=== PATIENT | male | born 1960 | race Caucasian/White ===

== ENCOUNTER → 2021-05-21 08:37 | Outpatient (CLI) | payer OTHER, SELFPAY ==
[2021-05-21 21:08] LABS: COVID19 - ORCAS (NP or Nasal) Negative (Negative)
== END ==
PROVIDERS: PCP Physician Assistant; Visit Provider Family Medicine
DX: Z20.822 Contact with and (suspected) exposure to COVID-19 (principal)
CPT/HCPCS: U0003

== ENCOUNTER 2021-05-24 11:48 | Day surgery (SDC) | payer OTHER, SELFPAY ==
[2021-05-24] VITALS (9 sets, daily range): BP systolic 117–132; BP diastolic 83–93; PULSE 71–80; RESP 10–18; TEMP 36.7–37.1; O2SAT 95–100; BMI 25.4
[2021-05-24] MEDS: LACTATED RINGERS 1,000 ML 200 ML IV (13:06)
--- NOTE | 2021-05-24 13:08 | PM.HP.1 ---
History of Present Illness History of Present Illness Date Patient Seen: 05/24/21 Time Patient Seen: 13:09 Chief complaint: SCREENING COLONOSCOPY Narrative: The patient presents for colorectal sreening. They have never had any previous examination for such. No personal or family history of colon cancer. On further history denies any recent gastrointestinal symptoms. No nausea, vomiting, abdominal pain, loss of appetite, unexplained weight loss, change in bowel habits, diarrhea, constipation, melena, hematochezia, or bright red blood per rectum. Patient History Medical History Encounter for screening for malignant neoplasm of colon Familial hemochromatosis (~2011) Hypertension (~2014) Obstructive sleep apnea (~2018) Raynauds syndrome Snoring (Unknown) Streptococcal sore throat Family & Social History Social History: household members spouse Tobacco & Substance use: Smoking Status Never smoker alcohol intake current alcohol intake frequency a few times a month Meds Home Medications and Allergies Home Medications Medication Instructions Recorded Confirmed Type methocarbamol 500 mg tablet See Rx Instructions PO QID PRN 02/21/21 05/24/21 Rx #100 tab Allergies Allergy/AdvReac Type Severity Reaction Status Date / Time No Known Drug Allergies Allergy Verified 05/24/21 13:07 Review of Systems Review of Systems ROS: Yes All systems reviewed with the patient and are negative except as otherwise documented Exam Vital Signs (past 8 hours): - 05/24/21 12:28 05/24/21 13:07 Temperature 98.1 F 98.1 F Pulse Rate 74 75 Respiratory Rate 16 18 Blood Pressure 129/87 Pulse Oximetry 100 100 Oxygen Delivery Method Room Air Narrative Exam Narrative: Constitutional-he is oriented to person, place and time. No apparent distress Cardiovascular- regular rate, no peripheral edema Pulmonary-unlabored respiratory effort, no audible wheezing Abdominal-soft, non-tender, non-distended Musculoskeletal-no cyanosis or clubbing Neurological-nonfocal, normal strength throughout, normal gait. Skin-warm and dry Assessment & Plan Assessment & Plan narrative: The patient requires colorectal screening and colonoscopy is recommended. Technical details were discussed. Risks, benefits, alternatives explained. Risks including but not limited to myocardial infarction, aspiration, bleeding, pain, missed lesion, incomplete examination, need for further radiographic studies, colonic perforation, and need for major abdominal surgery were discussed. All questions were answered to their satisfaction, and they are in agreement with this plan. Time Spent With Patient Critical Care time: I spent a total of [] minutes of critical care time on this patient's care today; this time is exclusive of procedural time.
[2021-05-24] MEDS: fentaNYL 250 MCG/5 ML INJ IV (13:15)
[2021-05-24] MEDS: MIDAZOLAM 5 MG/5 ML VIAL IV (13:15)
--- NOTE | 2021-05-24 13:22 | PM.OP.ENDO ---
Operative Date/Time/Diagnoses Date of procedure: 05/24/21 Time of procedure: 13:22 Pre-op diagnosis: screening colonoscopy Post-op diagnosis: same Procedure & Clinicians Study performed: aborted colonoscopy Same procedure as scheduled: No Indications: screening Surgeon: Suresh Lacy Procedure Notes Procedure in detail: Medications: Conscious sedation using 100mg IV midazolam and 5mcg IV of fentanyl The history and physical was performed/updated and the patient is ASA class is 2. The procedure was discussed in detail with the patient. Potential risks complications including infection, bleeding, missed diagnosis, perforation, need for surgery, and were explained. Their questions were answered and informed consent was obtained. Patient was brought to the procedure room and placed standard monitoring equipment. The patient's vital signs were monitored continuously throughout the entire procedure. Prior to starting time-out was performed. The patient was placed in the left lateral recumbent position. Procedural sedation was administered. Examination began with a thorough inspection of the perianal area there was no evidence of fissures, fistulae, external hemorrhoids or cutaneous malignancy. The colonoscopy scope was then placed into the anal canal and was advanced forward. Quality of the prep was quite poor despite irrigation it did not improve significantly enough to perform this study safely or accurately. The procedure was then aborted. The total sedation time was 5 minutes. Complications: none Impression: Aborted colonoscopy secondary to inadequate prep Post-procedure Plan for aftercare: Reschedule Disposition: same day surgery
== END 2021-05-24 14:10 | disposition home or self-care (01) ==
PROVIDERS: PCP Physician Assistant; Referring Provider Surgery; Visit Provider Surgery
PROC: 0DJD8ZZ Inspection of Lower Intestinal Tract, Via Natural or Artificial Opening Endoscopic (ICD-10-PCS; CPT 45378; principal; 2021-05-24 13:00)
DX: Z12.11 Encounter for screening for malignant neoplasm of colon (principal); I10 Essential (primary) hypertension; G47.33 Obstructive sleep apnea (adult) (pediatric); I73.00 Raynaud's syndrome without gangrene
CPT/HCPCS: 45378; J2250; J3010

== ENCOUNTER → 2021-07-10 12:16 | Outpatient (CLI) | payer OTHER, SELFPAY ==
[2021-07-10 19:13] LABS: Add Manual Diff / Slide Review NO; Basophils Absolute Auto 0 /uL (0-100); Basophils Percent Auto 0.3 % (0-2); Eosinophils Absolute Auto 100 /uL (0-450); Eosinophils Percent Auto 1.2 % (2-4); Hemoglobin 15.8 g/dL (13.5-17.5); Lymphocytes Absolute Auto 1500 /uL (1100-4500); Lymphocytes Percent Auto 28.2 % (25-40); Mean Corpuscular HGB Conc 35.1 % (30-36); Mean Corpuscular Hemoglobin 33.6 PG (26-34); Monocytes Absolute Auto 700 /uL (0-900); Monocytes Percent Auto 12.3 % (3-14); Neutrophils Absolute Auto 3100 /uL (1500-7000); Platelet Count 169 X10^3/uL (150-400); Red Blood Cell Count 4.69 X10^6/uL (4.5-5.9); White Blood Cell Count 5.3 X10^3/uL (4.5-11.0)
[2021-07-10 19:55] LABS: Ferritin 104 ng/mL (18-464)
== END ==
PROVIDERS: PCP Physician Assistant; Referring Provider Internal Medicine; Visit Provider Internal Medicine
DX: E83.119 Hemochromatosis, unspecified (principal)
CPT/HCPCS: 82728; 85025

== ENCOUNTER → 2021-10-19 13:34 | Outpatient (CLI) | payer OTHER, SELFPAY ==
[2021-10-19 18:54] LABS: Add Manual Diff / Slide Review NO; Basophils Absolute Auto 0 /uL (0-100); Basophils Percent Auto 0.5 % (0-2); Eosinophils Absolute Auto 0 /uL (0-450); Hematocrit 42.4 % (41-53); Hemoglobin 15.1 g/dL (13.5-17.5); Lymphocytes Absolute Auto 1400 /uL (1100-4500); Lymphocytes Percent Auto 29.6 % (25-40); Mean Corpuscular HGB Conc 35.6 % (30-36); Mean Corpuscular Volume 95.5 fL (80-100); Monocytes Absolute Auto 500 /uL (0-900); Monocytes Percent Auto 10.5 % (3-14); Neutrophils Absolute Auto 2700 /uL (1500-7000); Neutrophils Percent Auto 58.4 % (50-75); Platelet Count 155 X10^3/uL (150-400); Red Blood Cell Count 4.44 X10^6/uL (4.5-5.9); Red Cell Distribution Width 12.9 % (11.6-14.8); White Blood Cell Count 4.6 X10^3/uL (4.5-11.0)
[2021-10-19 19:43] LABS: Ferritin 122 ng/mL (18-464)
== END ==
PROVIDERS: PCP Physician Assistant; Visit Provider Internal Medicine
DX: E83.119 Hemochromatosis, unspecified (principal)
CPT/HCPCS: 82728; 85025

== ENCOUNTER → 2022-03-07 10:21 | Outpatient (CLI) | payer OTHER, SELFPAY | PROVIDERS: PCP Physician Assistant; Visit Provider Physician Assistant | DX: R19.7 Diarrhea, unspecified (principal) | CPT/HCPCS: 87045; 87177; 87329; 87899 ==

== ENCOUNTER → 2022-04-30 09:22 | Outpatient (CLI) | payer OTHER, SELFPAY ==
[2022-04-30 19:45] LABS: Alanine Aminotransferase 39 IU/L (<50); Albumin 4.2 g/dL (3.5-5.0); Albumin Globulin Ratio 1.8 (1.0-2.8); Alkaline Phosphatase 58 U/L (38-126); Aspartate Aminotransferase 31 IU/L (17-59); BUN Creatinine Ratio 15.8 (6-22); Bilirubin Total 0.7 mg/dL (0.2-1.3); Blood Urea Nitrogen 12 mg/dL (9-20); Calcium 8.9 mg/dL (8.4-10.2); Carbon Dioxide 26 mmol/L (22-32); Chloride 102 mmol/L (98-107); Estimated Glomerular Filt Rate > 60 mL/min (>60); Globulin 2.4 g/dL (1.7-4.1); Glucose 90 mg/dL (70-100); HEMOLYSIS 32 (0-50); Potassium 4.2 mmol/L (3.4-5.1); Sodium 137 mmol/L (137-145); Total Protein 6.6 g/dL (6.3-8.2)
[2022-04-30 20:19] LABS: Ferritin 200 ng/mL (18-464)
[2022-04-30 20:29] LABS: Basophils Absolute Auto 100 /uL (0-100); Basophils Percent Auto 1.1 % (0-2); Eosinophils Absolute Auto 200 /uL (0-450); Eosinophils Percent Auto 3.4 % (2-4); Lymphocytes Absolute Auto 1700 /uL (1100-4500); Lymphocytes Percent Auto 32.9 % (25-40); Mean Corpuscular HGB Conc 35.6 % (30-36); Mean Corpuscular Hemoglobin 33.4 PG (26-34); Mean Corpuscular Volume 93.8 fL (80-100); Monocytes Absolute Auto 600 /uL (0-900); Neutrophils Absolute Auto 2600 /uL (1500-7000); Neutrophils Percent Auto 50.6 % (50-75); Platelet Count 175 X10^3/uL (150-400); Red Blood Cell Count 4.48 X10^6/uL (4.5-5.9); Red Cell Distribution Width 12.7 % (11.6-14.8); White Blood Cell Count 5.1 X10^3/uL (4.5-11.0)
[2022-04-30 21:26] LABS: Add Manual Diff / Slide Review SLIDE REVIEW
[2022-04-30 21:27] LABS: RBC Morphology Normal Morphology
== END ==
PROVIDERS: PCP Physician Assistant; Visit Provider Physician Assistant
DX: E83.110 Hereditary hemochromatosis (principal)
CPT/HCPCS: 80053; 82728; 85025

== ENCOUNTER → 2022-11-06 11:37 | Outpatient (CLI) | payer OTHER, SELFPAY ==
--- NOTE | 2022-11-06 11:45 | DI.MRI.S_ITS ---
PROCEDURE: MR KNEE LT WO CON INDICATIONS: left knee pain and swelling TECHNIQUE: Noncontrast sagittal PD fast spin echo and T2 fast spin echo with fat saturation, sagittal 3-D FLASH with fat saturation; coronal T1 spin echo and PD fast spin echo with fat saturation, and axial PD fast spin echo with fat saturation through the knee. COMPARISON: [facility] ([facility] CR, XR KNEE LT 3V, 09/10/2022, 9:00. FINDINGS: Image quality: Excellent. Menisci: Subtle oblique tear involving posterior horn of medial meniscus is seen extending to superior articulating surface. The lateral meniscus is intact. The meniscal root ligaments appear intact. Cruciate ligaments: T2 hyperintense signal involving proximal portion of anterior cruciate ligament near its femoral insertion is seen. The posterior cruciate ligament is intact. Medial structures: The medial collateral ligament appears thickened with adjacent soft tissue edema. The posterior oblique ligament, semimembranosus tendon insertions, oblique popliteal ligament, and meniscocapsular junction appear intact. Visualized portions of the pes anserinus tendons appear normal. No abnormal bursal fluid. Lateral structures: The lateral collateral ligament, long and short heads of the biceps femoris tendon appear intact. The popliteus tendon appears normal; the popliteofibular ligament appears intact. Iliotibial band appears normal. Anterior structures: The quadriceps and patellar tendons appear intact. Patellar alignment is normal. No femoral trochlear dysplasia or ventral trochlear prominence. No edema in the infrapatellar fat pad. Bones and cartilage: [id number] tricompartmental osteoarthritis and chondromalacia is seen more notably in medial femoral tibial compartment and patellofemoral compartment. Significant marrow edema is seen involving weight-bearing portion of medial femoral condyle and inferior aspect of patella without discrete fracture line. Joint space: There is small to moderate knee joint fluid. No Choudhary's cyst. Normal appearing synovial plicae are incidentally noted. IMPRESSION: 1. Subtle oblique tear involving posterior horn of medial meniscus extending to superior articulating surface. No focal lateral meniscal tear. 2. Low-grade intrasubstance partial-thickness tear involving proximal anterior cruciate ligament. No ACL rupture. The PCL is intact. 3. Low-grade MCL sprain. 4. [id number] tricompartmental osteoarthritis and chondromalacia most notably in medial femoral tibial compartment and patellofemoral compartment as above. No fracture or dislocation. Small to moderate joint effusion, no gross loose bodies. Dictated by: Jensen Llanos M.D. on 11/06/2022 at 15:23 Approved by: Jensen Llanos M.D. on 11/06/2022 at 15:27
== END ==
PROVIDERS: PCP Physician Assistant; Referring Provider Physician Assistant; Visit Provider Physician Assistant
DX: S83.242A Other tear of medial meniscus, current injury, left knee, initial encounter (principal); S83.512A Sprain of anterior cruciate ligament of left knee, initial encounter; S83.412A Sprain of medial collateral ligament of left knee, initial encounter; M17.12 Unilateral primary osteoarthritis, left knee; M94.262 Chondromalacia, left knee; M25.562 Pain in left knee; M25.462 Effusion, left knee
CPT/HCPCS: 73721

== ENCOUNTER → 2022-12-18 09:31 | Outpatient (CLI) | payer OTHER, SELFPAY ==
[2022-12-18 19:36] LABS: Add Manual Diff / Slide Review NO; Basophils Absolute Auto 0 /uL (0-100); Basophils Percent Auto 0.2 % (0-2); Eosinophils Absolute Auto 100 /uL (0-450); Eosinophils Percent Auto 1.2 % (2-4); Hematocrit 43.3 % (41-53); Hemoglobin 15.4 g/dL (13.5-17.5); Lymphocytes Absolute Auto 1600 /uL (1100-4500); Lymphocytes Percent Auto 30.8 % (25-40); Mean Corpuscular HGB Conc 35.5 % (30-36); Mean Corpuscular Hemoglobin 33.1 PG (26-34); Mean Corpuscular Volume 93.1 fL (80-100); Monocytes Absolute Auto 500 /uL (0-900); Neutrophils Absolute Auto 3000 /uL (1500-7000); Neutrophils Percent Auto 57.8 % (50-75); Platelet Count 179 X10^3/uL (150-400); Red Blood Cell Count 4.65 X10^6/uL (4.5-5.9); Red Cell Distribution Width 13.1 % (11.6-14.8); White Blood Cell Count 5.2 X10^3/uL (4.5-11.0)
[2022-12-18 19:47] LABS: Alanine Aminotransferase 66 IU/L (<50); Albumin 4.2 g/dL (3.5-5.0); Albumin Globulin Ratio 1.6 (1.0-2.8); Alkaline Phosphatase 69 U/L (38-126); Aspartate Aminotransferase 37 IU/L (17-59); BUN Creatinine Ratio 18.4 (6-22); Bilirubin Total 0.9 mg/dL (0.2-1.3); Blood Urea Nitrogen 14 mg/dL (9-20); Calcium 9.1 mg/dL (8.4-10.2); Carbon Dioxide 30 mmol/L (22-32); Chloride 100 mmol/L (98-107); Cholesterol 197 mg/dL (140-199); Estimated Glomerular Filt Rate > 60 mL/min (>60); Globulin 2.7 g/dL (1.7-4.1); Glucose 97 mg/dL (80-110); HDL Cholesterol 54 mg/dL (40-60); HEMOLYSIS < 15 (0-50); LDL Cholesterol Calculated 120 mg/dL (<100); Potassium 4.1 mmol/L (3.4-5.1); Sodium 136 mmol/L (137-145); Total Protein 6.9 g/dL (6.3-8.2); Triglycerides 114 mg/dL (35-150)
[2022-12-18 20:10] LABS: Prostate Specific Antigen 0.692 ng/mL (0.10-4.00)
[2022-12-18 20:15] LABS: Ferritin 301 ng/mL (18-464)
[2022-12-19 19:11] LABS: Hep C Virus Ab w/Reflex Quant NEGATIVE s/c (NEGATIVE)
== END ==
PROVIDERS: PCP Physician Assistant; Visit Provider Physician Assistant
DX: I10 Essential (primary) hypertension (principal); Z13.6 Encounter for screening for cardiovascular disorders; Z11.59 Encounter for screening for other viral diseases; Z12.5 Encounter for screening for malignant neoplasm of prostate; E83.110 Hereditary hemochromatosis
CPT/HCPCS: 80053; 80061; 82728; 84153; 85025; 86803

== ENCOUNTER → 2023-03-04 11:45 | Outpatient (CLI) | payer OTHER, SELFPAY ==
[2023-03-04 20:08] LABS: Add Manual Diff / Slide Review NO; Basophils Absolute Auto 0 /uL (0-100); Basophils Percent Auto 0.3 % (0-2); Eosinophils Absolute Auto 100 /uL (0-450); Eosinophils Percent Auto 1.1 % (2-4); Hematocrit 41.2 % (41-53); Hemoglobin 14.9 g/dL (13.5-17.5); Lymphocytes Absolute Auto 1600 /uL (1100-4500); Lymphocytes Percent Auto 31.3 % (25-40); Mean Corpuscular HGB Conc 36.1 % (30-36); Mean Corpuscular Hemoglobin 33.9 PG (26-34); Mean Corpuscular Volume 93.9 fL (80-100); Monocytes Absolute Auto 600 /uL (0-900); Monocytes Percent Auto 11.4 % (3-14); Neutrophils Absolute Auto 2900 /uL (1500-7000); Neutrophils Percent Auto 55.9 % (50-75); Platelet Count 164 X10^3/uL (150-400); Red Blood Cell Count 4.39 X10^6/uL (4.5-5.9); Red Cell Distribution Width 13.1 % (11.6-14.8); White Blood Cell Count 5.2 X10^3/uL (4.5-11.0)
[2023-03-04 20:11] LABS: Alanine Aminotransferase 49 IU/L (<50); Albumin 4.2 g/dL (3.5-5.0); Albumin Globulin Ratio 1.5 (1.0-2.8); Alkaline Phosphatase 70 U/L (38-126); Aspartate Aminotransferase 31 IU/L (17-59); BUN Creatinine Ratio 15.6 (6-22); Bilirubin Total 0.8 mg/dL (0.2-1.3); Blood Urea Nitrogen 12 mg/dL (9-20); Carbon Dioxide 27 mmol/L (22-32); Chloride 100 mmol/L (98-107); Cholesterol 193 mg/dL (140-199); Estimated Glomerular Filt Rate > 60 mL/min (>60); Globulin 2.8 g/dL (1.7-4.1); Glucose 89 mg/dL (80-110); HDL Cholesterol 60 mg/dL (40-60); HEMOLYSIS < 15 (0-50); LDL Cholesterol Calculated 115 mg/dL (<100); Potassium 4.1 mmol/L (3.4-5.1); Sodium 136 mmol/L (137-145); Triglycerides 91 mg/dL (35-150)
[2023-03-06 00:07] LABS: x Labcorp Estim. Avg Glu (eAG) 97 mg/dL (.)
== END ==
PROVIDERS: PCP Physician Assistant; Visit Provider Orthopaedic Surgery Foot and Ankle Surgery
DX: R73.9 Hyperglycemia, unspecified (principal); Z01.812 Encounter for preprocedural laboratory examination; E78.00 Pure hypercholesterolemia, unspecified; R74.8 Abnormal levels of other serum enzymes
CPT/HCPCS: 80053; 80061; 83036; 85025

== ENCOUNTER → 2023-08-25 14:32 | Outpatient (CLI) | payer OTHER, SELFPAY ==
[2023-08-25 19:47] LABS: Add Manual Diff / Slide Review NO; Basophils Absolute Auto 0 /uL (0-100); Basophils Percent Auto 0.6 % (0-2); Eosinophils Absolute Auto 0 /uL (0-450); Eosinophils Percent Auto 0.7 % (2-4); Hematocrit 42.6 % (41-53); Hemoglobin 15.3 g/dL (13.5-17.5); Lymphocytes Absolute Auto 1300 /uL (1100-4500); Lymphocytes Percent Auto 26.1 % (25-40); Mean Corpuscular Hemoglobin 33.7 PG (26-34); Mean Corpuscular Volume 93.6 fL (80-100); Monocytes Absolute Auto 500 /uL (0-900); Monocytes Percent Auto 10.8 % (3-14); Neutrophils Absolute Auto 3100 /uL (1500-7000); Neutrophils Percent Auto 61.8 % (50-75); Platelet Count 175 X10^3/uL (150-400); Red Blood Cell Count 4.55 X10^6/uL (4.5-5.9); Red Cell Distribution Width 13.5 % (11.6-14.8)
[2023-08-25 19:56] LABS: HEMOLYSIS < 15 (0-50); Potassium 3.9 mmol/L (3.4-5.1)
[2023-08-25 19:57] LABS: Alanine Aminotransferase 46 IU/L (<50); Albumin 4.2 g/dL (3.5-5.0); Albumin Globulin Ratio 1.7 (1.0-2.8); Alkaline Phosphatase 68 U/L (38-126); Aspartate Aminotransferase 31 IU/L (17-59); BUN Creatinine Ratio 15.1 (6-22); Bilirubin Total 0.8 mg/dL (0.2-1.3); Blood Urea Nitrogen 14 mg/dL (9-20); Calcium 9.6 mg/dL (8.4-10.2); Carbon Dioxide 27 mmol/L (22-32); Chloride 101 mmol/L (98-107); Estimated Glomerular Filt Rate > 60 mL/min (>60); Globulin 2.5 g/dL (1.7-4.1); Glucose 97 mg/dL (80-110); Sodium 137 mmol/L (137-145); Total Protein 6.7 g/dL (6.3-8.2)
[2023-08-25 20:27] LABS: Ferritin 464 ng/mL (18-464)
[2023-08-25 20:34] LABS: HEMOLYSIS < 15 (0-50); Iron 165 ug/dL (49-181)
[2023-08-25 20:45] LABS: Percent Iron Saturation 66 % (20-50); Total Iron Binding Capacity 251 ug/dL (261-462); Transferrin 207 mg/dL (206-381)
== END ==
PROVIDERS: PCP Physician Assistant; Visit Provider Internal Medicine
DX: E83.110 Hereditary hemochromatosis (principal)
CPT/HCPCS: 80053; 82728; 83540; 83550; 85025

== ENCOUNTER → 2023-10-07 14:31 | Outpatient (CLI) | payer OTHER, SELFPAY ==
[2023-10-07 19:13] LABS: Hematocrit 41.8 % (41-53); Hemoglobin 14.8 g/dL (13.5-17.5); Mean Corpuscular HGB Conc 35.4 % (30-36); Mean Corpuscular Hemoglobin 33.8 PG (26-34); Mean Corpuscular Volume 95.6 fL (80-100); Platelet Count 195 X10^3/uL (150-400); Red Blood Cell Count 4.37 X10^6/uL (4.5-5.9); Red Cell Distribution Width 14.1 % (11.6-14.8); White Blood Cell Count 5.8 X10^3/uL (4.5-11.0)
[2023-10-07 19:57] LABS: Ferritin 389 ng/mL (18-464)
== END ==
PROVIDERS: PCP Physician Assistant; Visit Provider Internal Medicine
DX: E83.119 Hemochromatosis, unspecified (principal)
CPT/HCPCS: 82728; 85027

== ENCOUNTER → 2023-11-06 14:19 | Outpatient (CLI) | payer OTHER, SELFPAY ==
[2023-11-06 19:53] LABS: Ferritin 311 ng/mL (18-464)
[2023-11-06 20:03] LABS: Add Manual Diff / Slide Review NO; Basophils Absolute Auto 300 /uL (0-100); Basophils Percent Auto 5.4 % (0-2); Eosinophils Absolute Auto 0 /uL (0-450); Eosinophils Percent Auto 0.7 % (2-4); Hematocrit 40.2 % (41-53); Hemoglobin 14.5 g/dL (13.5-17.5); Lymphocytes Absolute Auto 1500 /uL (1100-4500); Lymphocytes Percent Auto 27.4 % (25-40); Mean Corpuscular Hemoglobin 33.7 PG (26-34); Mean Corpuscular Volume 93.7 fL (80-100); Monocytes Absolute Auto 600 /uL (0-900); Neutrophils Absolute Auto 3100 /uL (1500-7000); Neutrophils Percent Auto 55.5 % (50-75); Platelet Count 180 X10^3/uL (150-400); Red Blood Cell Count 4.29 X10^6/uL (4.5-5.9); Red Cell Distribution Width 13.1 % (11.6-14.8); White Blood Cell Count 5.6 X10^3/uL (4.5-11.0)
== END ==
PROVIDERS: PCP Physician Assistant; Visit Provider Internal Medicine
DX: E83.119 Hemochromatosis, unspecified (principal)
CPT/HCPCS: 82728; 85025

== ENCOUNTER → 2023-12-11 10:24 | Outpatient (CLI) | payer OTHER, SELFPAY ==
[2023-12-11 19:30] LABS: Hematocrit 43.6 % (41-53); Hemoglobin 15.5 g/dL (13.5-17.5); Mean Corpuscular HGB Conc 35.5 % (30-36); Mean Corpuscular Hemoglobin 34.5 PG (26-34); Mean Corpuscular Volume 97.4 fL (80-100); Platelet Count 212 X10^3/uL (150-400); Red Blood Cell Count 4.47 X10^6/uL (4.5-5.9); White Blood Cell Count 6.1 X10^3/uL (4.5-11.0)
[2023-12-11 21:20] LABS: Ferritin 390 ng/mL (18-464)
== END ==
PROVIDERS: PCP Physician Assistant; Visit Provider Internal Medicine
DX: E83.119 Hemochromatosis, unspecified (principal)
CPT/HCPCS: 82728; 85027

== ENCOUNTER → 2023-12-23 09:19 | Outpatient (CLI) | payer OTHER, SELFPAY | PROVIDERS: PCP Physician Assistant; Visit Provider Physician Assistant | DX: R19.7 Diarrhea, unspecified (principal) | CPT/HCPCS: 87177 ==

== ENCOUNTER → 2024-01-15 13:08 | Outpatient (CLI) | payer OTHER, SELFPAY ==
[2024-01-15 20:02] LABS: Add Manual Diff / Slide Review NO; Basophils Absolute Auto 0 /uL (0-100); Basophils Percent Auto 0.5 % (0-2); Eosinophils Absolute Auto 100 /uL (0-450); Eosinophils Percent Auto 0.9 % (2-4); Hematocrit 41.6 % (41-53); Lymphocytes Absolute Auto 1500 /uL (1100-4500); Lymphocytes Percent Auto 24.4 % (25-40); Mean Corpuscular Hemoglobin 34.9 PG (26-34); Mean Corpuscular Volume 96.9 fL (80-100); Monocytes Absolute Auto 500 /uL (0-900); Monocytes Percent Auto 8.1 % (3-14); Neutrophils Absolute Auto 4000 /uL (1500-7000); Neutrophils Percent Auto 66.1 % (50-75); Platelet Count 195 X10^3/uL (150-400); Red Blood Cell Count 4.29 X10^6/uL (4.5-5.9); Red Cell Distribution Width 12.9 % (11.6-14.8)
[2024-01-15 20:16] LABS: Alanine Aminotransferase 35 IU/L (<50); Albumin 4.6 g/dL (3.5-5.0); Albumin Globulin Ratio 1.9 (1.0-2.8); Alkaline Phosphatase 71 U/L (38-126); Aspartate Aminotransferase 34 IU/L (17-59); BUN Creatinine Ratio 21.2 (6-22); Bilirubin Total 0.8 mg/dL (0.2-1.3); Blood Urea Nitrogen 14 mg/dL (9-20); Calcium 9.4 mg/dL (8.4-10.2); Carbon Dioxide 25 mmol/L (22-32); Chloride 104 mmol/L (98-107); Estimated Glomerular Filt Rate > 60 mL/min (>60); Globulin 2.4 g/dL (1.7-4.1); Glucose 108 mg/dL (80-110); HEMOLYSIS < 15 (0-50); Lipase 81 U/L (23-300); Potassium 3.7 mmol/L (3.4-5.1); Sodium 136 mmol/L (137-145)
[2024-01-15 20:35] LABS: Erythrocyte Sedimentation Rate 6 MM/HR (0-15)
[2024-01-15 20:56] LABS: Ferritin 288 ng/mL (18-464)
== END ==
PROVIDERS: PCP Physician Assistant; Visit Provider Internal Medicine
DX: E83.110 Hereditary hemochromatosis (principal); D64.9 Anemia, unspecified; R19.7 Diarrhea, unspecified; R53.81 Other malaise; R53.83 Other fatigue
CPT/HCPCS: 80053; 82728; 83690; 85025; 85651

== ENCOUNTER → 2024-01-24 10:05 | Outpatient (CLI) | payer OTHER, SELFPAY ==
--- NOTE | 2024-01-24 10:06 | DI.CT.S_ITS ---
PROCEDURE: CT ABDOMEN PELVIS W CON INDICATIONS: RLQ tenderness. Bowel change. TECHNIQUE: After the administration of intravenous contrast, axial sections acquired from the lung bases to the pubic symphysis. Coronal and sagittal reformats were performed. For radiation dose reduction, the following was used: automated exposure control, adjustment of mA and/or kV according to patient size. COMPARISON: None. FINDINGS: Image quality: Diagnostic. Lower Chest: No significant findings. ABDOMEN: Liver: No solid mass. Gallbladder: Calcified gallstones near the gallbladder neck. Biliary ducts: No biliary dilation. Pancreas: No ductal dilation. Spleen: Size is within normal limits. Adrenal Glands: No adrenal nodules. Kidneys and Ureters: No hydronephrosis. No solid mass. No complex renal cystic lesion which requires follow up. Stomach and Bowel: No evidence of obstruction. Scattered colonic diverticula. There is diffuse thickening of the rectum which may be exaggerated from underdistention. Peritoneum: No abnormal intraperitoneal fluid. No free air. Ventral Wall: No significant ventral hernia. Abdominal Nodes: No retroperitoneal or mesenteric adenopathy by size criteria. Vessels: Aorta and inferior vena cava are normal in size. PELVIS: Pelvic Organs: Unremarkable. Bladder: Diffuse wall thickening. Pelvic Nodes: No enlarged lymph nodes. Miscellaneous: No inguinal hernias are seen. Bones: No aggressive osseous abnormality. IMPRESSION: 1. Thickening of the rectum which may be exaggerated by underdistention. Recommend ensuring the patient is up-to-date on cancer screening studies. 2. Thickening of the bladder wall is likely exaggerated by underdistention as well. Correlate with UA. 3. Scattered colonic diverticula without evidence of acute diverticulitis. Dictated by: Lamine Rodriguez M.D. on 01/24/2024 at 10:49 Approved by: Lamine Rodriguez M.D. on 01/24/2024 at 10:54
== END ==
LOC: CT 10:05
PROVIDERS: PCP Physician Assistant; Referring Provider Physician Assistant; Visit Provider Physician Assistant
DX: K57.90 Diverticulosis of intestine, part unspecified, without perforation or abscess without bleeding (principal); K80.20 Calculus of gallbladder without cholecystitis without obstruction; R19.8 Other specified symptoms and signs involving the digestive system and abdomen; R10.813 Right lower quadrant abdominal tenderness
CPT/HCPCS: 74177; Q9967

== ENCOUNTER → 2024-01-27 16:42 | Outpatient (CLI) | payer OTHER, SELFPAY ==
[2024-01-28 19:52] LABS: Appearance Urine UA CLEAR; Bilirubin Urine UA NEGATIVE (NEGATIVE); Color Urine UA YELLOW; Glucose Urine UA NEGATIVE (Negative); Ketones Urine UA NEGATIVE (NEGATIVE); Leukocyte Esterase Urine UA NEGATIVE (NEGATIVE); Nitrite Urine UA NEGATIVE (Negative); Occult Blood Urine UA NEGATIVE (Negative); Protein Urine UA NEGATIVE (Negative); Urobilinogen Urine UA 0.2 E.U./dL (0.2); pH Urine UA 6.5 (4.5-8.0)
[2024-01-28 20:26] LABS: Bacteria Urine None Seen; Culture Indicated Urine Cult Not Indicated; RBC Urine None Seen (0-5/HPF); Squamous Epithelial Cell Urine None Seen (0-5/HPF); Urine Volume 10mL (spun); WBC Urine 0-1/HPF (0-5/HPF)
== END ==
PROVIDERS: PCP Physician Assistant; Visit Provider Physician Assistant
DX: R93.41 Abnormal radiologic findings on diagnostic imaging of renal pelvis, ureter, or bladder (principal)
CPT/HCPCS: 81001

== ENCOUNTER → 2024-03-18 13:58 | Outpatient (CLI) | payer OTHER, SELFPAY ==
[2024-03-18 21:45] LABS: Add Manual Diff / Slide Review NO; Basophils Absolute Auto 0 /uL (0-100); Basophils Percent Auto 0.3 % (0-2); Eosinophils Absolute Auto 100 /uL (0-450); Eosinophils Percent Auto 2.2 % (2-4); Hematocrit 40.2 % (41-53); Hemoglobin 14.4 g/dL (13.5-17.5); Lymphocytes Absolute Auto 1200 /uL (1100-4500); Lymphocytes Percent Auto 38.4 % (25-40); Mean Corpuscular HGB Conc 35.9 % (30-36); Mean Corpuscular Hemoglobin 34.4 PG (26-34); Mean Corpuscular Volume 95.8 fL (80-100); Monocytes Absolute Auto 400 /uL (0-900); Monocytes Percent Auto 12.2 % (3-14); Neutrophils Absolute Auto 1500 /uL (1500-7000); Neutrophils Percent Auto 46.9 % (50-75); Platelet Count 155 X10^3/uL (150-400); Red Cell Distribution Width 12.9 % (11.6-14.8); White Blood Cell Count 3.2 X10^3/uL (4.5-11.0)
[2024-03-19 05:34] LABS: Ferritin 537 ng/mL (18-464)
== END ==
PROVIDERS: PCP Physician Assistant; Visit Provider Internal Medicine
DX: E83.119 Hemochromatosis, unspecified (principal)
CPT/HCPCS: 82728; 85025

== ENCOUNTER → 2024-03-25 10:57 | Outpatient (CLI) | payer OTHER, SELFPAY ==
[2024-03-25 21:51] LABS: Erythrocyte Sedimentation Rate 5 MM/HR (0-15)
== END ==
PROVIDERS: PCP Physician Assistant; Visit Provider Internal Medicine
DX: K52.9 Noninfective gastroenteritis and colitis, unspecified (principal)
CPT/HCPCS: 82784; 83516; 85651

== ENCOUNTER → 2024-05-04 14:02 | Outpatient (CLI) | payer BC, SELFPAY ==
[2024-05-04 19:13] LABS: Add Manual Diff / Slide Review NO; Eosinophils Absolute Auto 100 /uL (0-450); Lymphocytes Absolute Auto 1600 /uL (1100-4500); Monocytes Absolute Auto 600 /uL (0-900); Neutrophils Absolute Auto 3600 /uL (1500-7000); Red Cell Distribution Width 13.4 % (11.6-14.8)
[2024-05-04 19:32] LABS: C-Reactive Protein Quant < 0.5 mg/dL (<1.0)
[2024-05-04 19:34] LABS: Basophils Absolute Auto 0 /uL (0-100); Basophils Percent Auto 0.5 % (0-2); Eosinophils Percent Auto 1.2 % (2-4); Hematocrit 41.8 % (41-53); Hemoglobin 14.8 g/dL (13.5-17.5); Lymphocytes Percent Auto 26.3 % (25-40); Mean Corpuscular HGB Conc 35.4 % (30-36); Mean Corpuscular Hemoglobin 34.3 PG (26-34); Mean Corpuscular Volume 96.8 fL (80-100); Monocytes Percent Auto 10.5 % (3-14); Neutrophils Percent Auto 61.5 % (50-75); Platelet Count 203 X10^3/uL (150-400); Red Blood Cell Count 4.32 X10^6/uL (4.5-5.9); White Blood Cell Count 5.9 X10^3/uL (4.5-11.0)
[2024-05-04 19:58] LABS: Ferritin 193 ng/mL (18-464)
== END ==
PROVIDERS: Internal Medicine; PCP Physician Assistant; Visit Provider Internal Medicine
DX: E83.119 Hemochromatosis, unspecified (principal); K52.9 Noninfective gastroenteritis and colitis, unspecified
CPT/HCPCS: 82728; 85025; 86140

== ENCOUNTER → 2024-05-05 14:00 | Outpatient (CLI) | payer BC, SELFPAY | PROVIDERS: PCP Family Medicine; Visit Provider Internal Medicine | DX: K52.9 Noninfective gastroenteritis and colitis, unspecified (principal) | CPT/HCPCS: 82656; 87177 ==

== ENCOUNTER → 2024-12-16 11:44 | Outpatient (CLI) | payer BC, SELFPAY ==
[2024-12-16 19:26] LABS: Add Manual Diff / Slide Review NO; Basophils Absolute Auto 0 /uL (0-100); Basophils Percent Auto 0.4 % (0-2); Eosinophils Absolute Auto 100 /uL (0-450); Eosinophils Percent Auto 1.2 % (2-4); Hematocrit 43.6 % (41-53); Hemoglobin 15.3 g/dL (13.5-17.5); Lymphocytes Absolute Auto 1300 /uL (1100-4500); Lymphocytes Percent Auto 24.8 % (25-40); Mean Corpuscular HGB Conc 35.1 % (30-36); Monocytes Absolute Auto 500 /uL (0-900); Neutrophils Absolute Auto 3300 /uL (1500-7000); Neutrophils Percent Auto 63.6 % (50-75); Platelet Count 174 X10^3/uL (150-400); Red Blood Cell Count 4.49 X10^6/uL (4.5-5.9); White Blood Cell Count 5.1 X10^3/uL (4.5-11.0)
[2024-12-16 20:10] LABS: Ferritin 58 ng/mL (18-464)
== END ==
PROVIDERS: PCP Family Medicine; Visit Provider Nurse Practitioner Family
DX: E83.110 Hereditary hemochromatosis (principal)
CPT/HCPCS: 82728; 85025

== ENCOUNTER → 2024-12-23 08:33 | Outpatient (CLI) | payer BC, SELFPAY ==
[2024-12-23 19:33] LABS: Alanine Aminotransferase 28 IU/L (<50); Albumin 4.3 g/dL (3.5-5.0); Albumin Globulin Ratio 1.7 (1.0-2.8); Alkaline Phosphatase 55 U/L (38-126); Aspartate Aminotransferase 29 IU/L (17-59); BUN Creatinine Ratio 16.7 (6-22); Bilirubin Total 0.7 mg/dL (0.2-1.3); Blood Urea Nitrogen 15 mg/dL (9-20); Calcium 9.3 mg/dL (8.4-10.2); Carbon Dioxide 27 mmol/L (22-32); Chloride 103 mmol/L (98-107); Cholesterol 194 mg/dL (140-199); Estimated Glomerular Filt Rate > 60 mL/min (>60); Globulin 2.5 g/dL (1.7-4.1); Glucose 97 mg/dL (80-110); HDL Cholesterol 48 mg/dL (40-60); HEMOLYSIS 20 (0-50); LDL Cholesterol Calculated 123 mg/dL (<100); Sodium 138 mmol/L (137-145); Total Protein 6.8 g/dL (6.3-8.2); Triglycerides 115 mg/dL (35-150)
== END ==
PROVIDERS: Physician Assistant; PCP Family Medicine; Referring Provider Family Medicine; Visit Provider Nurse Practitioner Family
DX: E78.00 Pure hypercholesterolemia, unspecified (principal); I10 Essential (primary) hypertension
CPT/HCPCS: 80053; 80061

== ENCOUNTER → 2024-12-30 12:12 | Outpatient (CLI) | payer OTHER, SELFPAY ==
--- NOTE | 2024-12-30 12:15 | DI.MRI.S_ITS ---
PROCEDURE: MR ANKLE LT WO CON INDICATIONS: Left High achiles injury TECHNIQUE: Noncontrast sagittal T1 spin echo and T2 fast spin echo with fat saturation, axial proton density fast spin echo and T2 fast spin echo with fat saturation, coronal T1 spin echo and T2 fast spin echo with fat saturation through the ankle/hindfoot. COMPARISON: None. FINDINGS: Image quality: Excellent. Bones and joints: There is extensive marrow edema involving weight-bearing portion of distal tibial plafond with subcortical cystic area consistent with osteochondral injury measures in aggregate 1.7 x 0.7 x 1.1 cm in size. Similar osteochondral injury involving superior weight-bearing portion of calcaneus adjacent to subtalar joint is also seen measures up to 1 x 1.3 x 0.7 cm in size. These are best seen on series 6, image 18 and series 7, image 26. No definite osteochondral injuries of talar dome. Osteoarthritic changes also noted in rest of the midfoot and hindfoot with suggestion of osteochondral injuries involving distal cuboid adjacent to 5th TMT joint. No other area of abnormal marrow signal. No significant joint effusion or intra-articular loose bodies. Medial structures: The posterior tibialis tendon appears thickened with fluid distending tendon sheath at the level of mid to distal talus and talonavicular joint. The flexor digitorum longus, and flexor hallucis longus tendons are intact. The posterior tibial neurovascular bundle appears normal within the tarsal tunnel, without extrinsic mass effect. The deltoid ligament and spring ligament are intact. Lateral structures: The anterior talofibular ligament appears attenuated with intrasubstance T2 hyperintense signal. The calcaneofibular, and posterior talofibular ligaments appear intact. More superiorly, the anterior and posterior tibiofibular ligaments appear intact, as is the intermalleolar ligament. The tibiofibular syndesmosis is normal in width at 2 mm or less. The peroneus longus and brevis tendons are thickened with small to moderate amount of fluid distending tendon sheath at the level of lateral malleolus extending to their distal insertions. The sinus tarsi demonstrates normal fatty signal, without edema, fibrosis, or cyst formation. Anterior structures: The tibialis anterior, extensor hallucis longus, and extensor digitorum longus tendons appear intact. The dorsal talonavicular ligament appears intact. Posterior and plantar structures: Achilles tendon is intact. Medial and lateral bands of the plantar fascia are of normal thickness. No abductor digiti quinti muscle atrophy to suggest Schwab neuropathy. IMPRESSION: 1. [id number] midfoot and hindfoot joint osteoarthritic changes are seen with osteochondral injuries involving distal tibial plafond, superior aspect of calcaneus adjacent to subtalar joint, and distal portion of cuboid adjacent to 5th TMT joint as described above. No fracture or dislocation. Small joint effusion, no loose bodies. 2. Low-grade tenosynovitis involving posterior tibialis tendon at the level of mid to distal talus and talonavicular joint. 3. Moderate grade tenosynovitis and intrasubstance partial-thickness tear involving peroneus longus and brevis tendons at the level of lateral malleolus extending to their distal insertions. 4. Low to moderate grade ATFL sprain/intrasubstance partial-thickness tear. No full-thickness ankle ligament rupture. 5. Achilles tendon is intact. Dictated by: Jensen Llanos M.D. on 01/01/2025 at 19:40 Approved by: Jensen Llanos M.D. on 01/01/2025 at 19:45
== END ==
PROVIDERS: PCP Family Medicine; Referring Provider Physician Assistant; Visit Provider Physician Assistant
DX: S93.492A Sprain of other ligament of left ankle, initial encounter (principal); S86.012A Strain of left Achilles tendon, initial encounter; S96.812A Strain of other specified muscles and tendons at ankle and foot level, left foot, initial encounter; M76.62 Achilles tendinitis, left leg; M79.672 Pain in left foot; M25.472 Effusion, left ankle; M65.972 Unspecified synovitis and tenosynovitis, left ankle and foot; W11.XXXA Fall on and from ladder, initial encounter
CPT/HCPCS: 73721

== ENCOUNTER → 2025-08-23 11:49 | Outpatient (CLI) | payer BC, SELFPAY ==
[2025-08-23 19:04] LABS: Add Manual Diff / Slide Review NO; Hematocrit 41.8 % (41-53); Hemoglobin 14.8 g/dL (13.5-17.5); Lymphocytes Absolute Auto 1600 /uL (1100-4500); Mean Corpuscular HGB Conc 35.4 % (30-36); Mean Corpuscular Hemoglobin 34.0 PG (26-34); Mean Corpuscular Volume 96.0 fL (80-100); Platelet Count 157 X10^3/uL (150-400)
[2025-08-23 19:33] LABS: Ferritin 124 ng/mL (18-464)
== END ==
PROVIDERS: PCP Physician Assistant; Visit Provider Internal Medicine Hematology & Oncology
DX: E83.110 Hereditary hemochromatosis (principal)
CPT/HCPCS: 82728; 85025